=== PATIENT | male | born 1950 | race Caucasian/White ===

== ENCOUNTER → 2018-02-13 | Outpatient (CLI) | payer MEDICARE, BC ==
[~2018-02-13] VITALS: Ht 183 cm; Wt 129.7 kg
[~2018-02-13] MED LIST: AMOXICILLIN 8751 TAB PO; ASPIRIN 81M81 MG/TA2 PO; COLACE 100100 MG/CAP PO; HCTZ 25MG TAB25 MG PO; MICRO-K 1010 MEQ PO; MOBIC15 MG PO; NEXIUM 40MG40 MG PO; NORCO 325 MG-51 TAB PO; VALIUM 2MG T2 MG/TAB PO; VASOTEC 10M10 MG/TAB PO; ZYLOPRIM 100MG100 MG PO
[2018-02-13 06:08] VITALS: BP 179/90; PULSE 40
[2018-02-13 07:18] LABS: HEMATOCRIT 45.3 % (42.0-52.0); HEMOGLOBIN 15.7 g/dl (13.5-18.0); MEAN CELL VOLUME 87 fl (80.0-100.0); MEAN CORPUSCULAR HEMOGLOBIN 30 pg (27.0-31.0); MEAN CORPUSCULAR HGB CONC 35 g/dl (33.0-37.0); MEAN PLATELET VOLUME 9.6 fl (7.4-10.4); PLATELET COUNT 288 K/mm3 (130-400); RED BLOOD COUNT 5.24 M/mm3 (4.20-5.60); REDCELL DISTRIBUTION WIDTH-CV 12.6 % (11.5-14.5)
[2018-02-13 07:21] LABS: ALBUMIN 4.1 gm/dL (3.5-5.0); BILIRUBIN,TOTAL 0.8 mg/dL (0.0-1.0); CALCIUM 8.9 mg/dL (8.4-10.2); CREATININE, serum 0.66 mg/dL (0.66-1.25); TOTAL PROTEIN 7.2 gm/dL (6.4-8.2)
[2018-02-13 07:36] VITALS: BP 135/68; PULSE 54
[2018-02-13 07:37] VITALS: BP 145/70; PULSE 49
[2018-02-13 07:38] VITALS: BP 134/61; PULSE 45
[2018-02-13 08:31] LABS: POTASSIUM 2.9 mmol/L (3.4-5.0)
== END ==
LOC: COL.CARD 05:42
PROVIDERS: Internal Medicine Cardiovascular Disease
DX: I49.5 Sick sinus syndrome (principal)
CPT/HCPCS: A9502; J2785

== ENCOUNTER 2021-05-11 11:38 | Day surgery (SDC) | payer MEDICARE, BC ==
[~2021-05-11] VITALS: Ht 182.9 cm; Wt 139.3 kg
[2021-05-11] MEDS ORDERED: CORDARONE200 MG/TAB PO (12:16)
[2021-05-11] MEDS ORDERED: ELIQUIS 5MG PO (12:17)
[2021-05-11] MEDS ORDERED: LASIX 40MG TABL40 MG PO (12:22)
[2021-05-11] MEDS ORDERED: COREG12.5 MG PO (12:22)
[2021-05-11] MEDS ORDERED: NORVASC 10MG10 MG PO (12:23)
[2021-05-11] MEDS ORDERED: K-DUR20 MEQ PO (12:23)
[2021-05-11] MEDS ORDERED: VASOTEC20 MG PO (12:24)
[2021-05-11] MEDS ORDERED: LYRICA 50MG CAP50 MG PO (12:24)
[2021-05-11] MEDS ORDERED: CRESTOR 10MG10 MG PO (12:24)
[2021-05-11] MEDS ORDERED: REQUIP0.25 MG PO (12:25)
[2021-05-11] MEDS ORDERED: STOOL SOFTENER100 M2 PO (12:26)
[2021-05-11] MEDS ORDERED: ROBAXIN 75750 MG/TAB PO (12:27)
[2021-05-11] MEDS ORDERED: FLONASEALLERGY NS (12:28)
[2021-05-11 12:49] LABS: INR 1.4 (0.8-3.0); PROTHROMBIN TIME 15.2 SECONDS (9.7-12.8)
[2021-05-11 12:54] VITALS: BP 147/94; PULSE 89
[2021-05-11 12:55] LABS: POTASSIUM 4.3 mmol/L (3.5-4.5)
[2021-05-11 13:21] LABS: THYROID STIMULATING HORMONE 1.529 uIU/mL (0.350-4.940)
[2021-05-11 14:00] VITALS: BP 133/87; PULSE 98
[2021-05-11 14:15] VITALS: BP 131/89; PULSE 90
[2021-05-11 14:30] VITALS: BP 132/85; PULSE 89
[2021-05-11 14:45] VITALS: BP 129/87; PULSE 89
--- NOTE | 2021-05-11 15:07 | NUR ---
Pt sitting up in chair for comfort due to his usual back pains. He is steady on feet in room when assisted to restroom. DC instructions reviewed with pt and . Both expressed understanding. Pt has tolerated PO fluids without issue. INT DC'd with catheter intact. He is assisted out to 's car by wheelchair with belongings.
== END 2021-05-11 15:30 | disposition home or self-care (01) ==
LOC: COL.CAR 11:38
PROVIDERS: Internal Medicine Cardiovascular Disease
DX: I48.91 Unspecified atrial fibrillation (principal); I25.10 Atherosclerotic heart disease of native coronary artery without angina pectoris; I11.0 Hypertensive heart disease with heart failure; I50.20 Unspecified systolic (congestive) heart failure; E78.5 Hyperlipidemia, unspecified; I49.5 Sick sinus syndrome; M10.9 Gout, unspecified; I44.0 Atrioventricular block, first degree; E66.9 Obesity, unspecified; M79.604 Pain in right leg; M79.605 Pain in left leg; K21.9 Gastro-esophageal reflux disease without esophagitis; G47.33 Obstructive sleep apnea (adult) (pediatric); G62.9 Polyneuropathy, unspecified; Z79.82 Long term (current) use of aspirin; Z68.41 Body mass index [BMI] 40.0-44.9, adult; Z79.01 Long term (current) use of anticoagulants; Z79.899 Other long term (current) drug therapy; Z95.0 Presence of cardiac pacemaker; Z87.891 Personal history of nicotine dependence
CPT/HCPCS: J7030